=== PATIENT | male | born 1985 | race Caucasian/White ===

== ENCOUNTER 2025-04-04 23:29 | Emergency (ER) | payer OTHER, SELFPAY ==
--- OUTSIDE RECORDS SUMMARY | 2025-04-04 23:31 | XMS_ITS | Clinical Summary ---
Author Organization [employer] [facility] Address [address] [place] [id number] Care Team Providers Care Freelance Makeup Artist Name Role Phone Pcp, No Primary Care Provider Unavailabl e Allergies Active Allergy Reactions Criticality Noted Date Comments Penicillins Rash 11/25/2009 Medications loratadine (CLARITIN) 10 mg tablet Take 1 tablet by mouth once daily. 0 0 Active multivitamin (MVI) tablet Take 1 tablet by mouth once daily. 0 1 Active albuterol HFA (PRO-AIR; VENTOLIN; PROVENTIL) 90 mcg/actuation inhalerIndicati ons:Chest congestion Inhale 1-2 Puffs by mouth every 4 hours if needed for Shortness of Breath 1st choice. 1 Each 1 Active Active Problems Problem Noted Date Diagnosed Date Obesity 12/05/2010 Allergic rhinitis 12/05/2010 Immunizations Immunization Administration Dates Next Due DTP 03/11/1990,06/13/1987,05/26/1986 ,02/27/1986,1985 Hepatitis B (Peds) 07/10/1996 MMR 07/10/1996,06/13/1987 Oral Polio Vaccine 04/27/1988,06/13/1987, 986,02/27/1986,1985 Td (Age >=7 Years) 03/11/1996 Tdap 04/11/2009 Family History Medical History Relation Name Comments Diabetes Brother type 2 Diabetes Mother Other Mother obesity Cancer Other none Relation Name Status Comments Brother Mother Other Social History Tobacco Use Types Packs/Day Years Used Date Smoking Tobacco: Never Smokeless Tobacco: Never Tobacco Cessation:Counseling Given: Yes Alcohol Use Standard Drinks/Week Comments No 0 (1 standard drink = 0.6 oz pur e alcohol) Social Connections Answer Date Recorded Frequency of Communication with Friends and Fami ly Not on file 09/04/2021 Financial Resource Strain Answer Date R ecorded Difficulty of Paying Living Expenses Not on file 09/04/2021 Difficulty of Paying Living Expenses Not on file 09/04/2021 Sex and Gender Information Value Date Recorded Sex Assigned at Not on file Legal Sex 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 Gender Identity Not on file Sexual Orientation Not on file Occupation Industry Job Start Date Job End Date unemployed Not on file Not on file Not on file Obstetrics History Last Filed Vital Signs Vital Sign Reading Time Taken Comments Blood Pressure 157/97 08/14/2021 11:24 AM 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 2nd reading Pulse 86 08/14/2021 11:24 AM 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 Temperature 36.9 C (98.4 F) 10/13/2017 7:45 AM 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 Respiratory Rate 20 10/13/2017 7:45 AM 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 Oxygen Saturation 97% 08/14/2021 11: 21 AM 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 Inhaled Oxygen Concentration - - Weight 180.3 kg (397 lb 6.4 oz) 08/14/2021 11:21 AM 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 Height 179.1 cm (5' 10.5) 01/17/2014 1 2:17 PM CDT Body Mass Index 56.22 01/17/2014 12:17 PM CDT Plan of Treatment Health Maintenance Due Date Last Done Comments Hepatitis B series for 19+ ( 2 of 3 - 3-dose series) 08/07/1996 07/10/1996 Depression screening for age 12+ 1997 HIV for age 15-65 01/03/2000 BMI (ht and wt on same day) for age 18+ 2003 Hepatitis C screening for ag e 18-79 2003 Tetanus booster 04/11/2019 04/11/2009, 03/11/1996 Lipids for age 35-44 01/03/2020 01/01/2011 COVID-19 vaccine series (2023- season) 2024 Influenza Vaccine (#1) 2025 Pneumococcal series for age 6-49 Aged Out No longer eligible b ased on patient's age to complete this topic Procedures Procedure Name Priority Date/Time Associated Diagnosis Comments LIPID PANEL W REFLEX MEASURED LDL Routine 01/01/2011 10:59 AM CDT Obesity from Last 3 Months or Most Recently Relevant to Health Maintenance Results * (ABNORMAL) lipid with reflex (01/01/2011 10:59 AM CDT) CHOLESTEROL,TOTAL 156 110 - 199 mg/dL [facility] TRIGLYCERIDES 139 <150 mg/dL [facility] HDL CHOLESTEROL 35(L) >40 mg/dL [facility] CHOL/HDL RATIO 4.46 <4.51 [facility] LDL CHOLESTEROL 93 <131 mg/dL [facility] PATIENT STATUS Fasting [facility] Blood specimen (specimen) BLOOD SPECIMEN / Unknown 01/01/2011 10:59 AM CDT 01/01/2011 10:48 AM CDT us Miguel Angel Trejo MD CHEMISTRY Final Re sult Performing Organization Address City/State/[facility] Co de Phone Number [facility] [address] [place], [place] [phone] from Last 3 Months or Most Recently Relevant to Health Maintenance Insurance [employer] Care Teams Freelance Makeup Artist Relationship Specialty Start Date End Date Pcp, No . PCP - General 10/06/13
[2025-04-04 23:33] VITALS: BP 158/106; PULSE 90; RESP 20; TEMP 36.6; O2SAT 96; BMI 54.5
[2025-04-05] MEDS: AZITHROMYCIN 250 MG TABLET 500 MG PO (00:14)
[2025-04-05 00:18] VITALS: TEMP 36.6
[2025-04-05] MEDS: ACETAMINOPHEN 500 MG TABLET 1000 MG PO (00:18)
--- NOTE | 2025-04-05 00:18 | ED_ITS ---
HPI - General Adult General Chief complaint: Jaw Injury/Pain Stated complaint: jaw pain Time Seen by Provider: 04/04/25 23:55 Source: patient Mode of arrival: ambulatory Limitations: no limitations History of Present Illness HPI narrative: 40-year-old male presents to the emergency department for evaluation of pain in the upper left jaw area, mild swelling of the cheek. Bothersome for the past day and half. Tried taking 800 mg of ibuprofen about 3 hours ago, no significant improvement. Did try taking 2 tablets of ibuprofen earlier in the day, has not tried Tylenol. No fever but felt a little warm today, did not measure his temperature. No fever noted at triage. No swelling of the neck, no difficulty swallowing, no difficulty breathing. Does have a known broken tooth and has not made an attempt to get a dental appointment. Does not regularly follow with a dentist. Not immunocompromised, no long-term medical problems or prescription medications. Does report a penicillin allergy. No breathing difficulty, no GI changes. ROS is notable for the HEENT symptoms only. Negative for generalized, GI, other HEENT, respiratory or skin changes. Related Data Allergies Allergy/AdvReac Type Severity Reaction Status Date / Time Penicillins Allergy Mild Rash Verified 04/04/25 23:33 PFSH [facility] Social History Smoking Status: Never smoker Do you use any of these nicotine containing products: None Second hand tobacco smoke exposure: No How often do you have a drink containing alcohol: never How often do you have six or more drinks on one occasion: Never AUDIT-C Alcohol total score: 0 Non-prescribed substance use: denies use service: No Exam Const: Vital Signs, click to edit/add: Vital Signs - 24 hr 04/04/25 23:33 04/05/25 00:18 Temperature 97.8 F 97.8 F Pulse Rate [Pulse Oximeter] 90 Respiratory Rate 20 Blood Pressure [Ri ght Upper Arm] 158/106 H Pulse Oximetry 96 Oxygen Delivery Me thod Room Air Documenting provider has reviewed patient's vital signs: yes Common normals: no apparent distress General appearance: comfortable HENMT: Common normals: normocephalic and head/scalp atraumatic Head and scalp: normocephalic and atraumatic Other: Very mild swelling to the left upper cheek, no redness. No skin change. Opens and closes the jaw without difficulty. No swelling of the nose or abnormalities of the nares. Inter oral exam showing multiple mild dental caries but broken tooth at the left 1st molar area, upper. Mild gum swelling associated with this. No drainage, no fluctuant area or obvious abscess. No bleeding. Eye: Common normals: conjunctivae normal General eye: normal appearance of both eyes Conjunctiva: conjunctiva(e) normal Neck & C-Spine: Common normals: full ROM and no lymphadenopathy General: normal visual inspection Resp: Common normals: normal respiratory effort and no use of accessory muscles Effort & inspection: able to speak in complete sentences Cardio: Common normals: regular rate, regular rhythm, S1 normal heart sound, S2 normal heart sound and no murmurs Rate: regular rate Rhythm: regular rhythm Heart sounds: S1 normal and S2 normal Psych: Common normals: speech normal Attitude: engaged Speech: normal speech Insight: insight good Judgement: judgment good Skin: Common normals: no rashes or lesions noted General skin exam: no rashes or lesions noted Course Course ED Course: From 40-year-old male with broken tooth with inflammatory changes suspicious for early dental infection. No signs of next soft tissue descending infection that would be suggestive of airway or soft tissue emergency. No signs of encephalitis, meningitis or other significant intracranial complication. Skin is without signs of cellulitis. Differential diagnosis discussed with patient. Do recommend we start antibiotics. Penicillin allergy noted. Patient given azithromycin 500 mg p.o. x1 and then instructed to continue on Z-Regan starting tomorrow. Prescriptions for Toradol for pain, also discussed [id number] Tylenol. Limited supply of Flexeril given to help with sleep at night. Most importantly, patient was counseled that he will need to schedule with a dentist for definitive care. The care that I have offered in the emergency department is a temporary treatment that will reduce his risk of severe infection but may not eliminate it completely but will definitely not offer definitive care for the broken tooth and infection. Patient verbalized understanding and agreement. Alarm symptoms that would warrant ED evaluation were reviewed. Written instructions provided. Vital Signs Vital signs: Initial Vital Signs Temperature 97.8 F 04/04/25 23:33 Temperature Source Temporal Artery Scan 04/04/25 23:33 Pulse Rate 90 04/04/25 23:33 Pulse Rhythm Regular 04/04/25 23:33 Respiratory Rate 20 04/04/25 23:33 Blood Pressure 158/106 H 04/04/25 23:33 Blood Pressure Mean 123 H 04/04/25 23:33 Blood Pressure Position Sitting 04/04/25 23:33 Pulse Oximetry 96 04/04/25 23:33 Oxygen Delivery Method Room Air 04/04/25 23:33 Vital Signs Temperature 97.8 F 04/04/25 23:33 Pulse Rate 90 04/04/25 23:33 Respiratory Rate 20 04/04/25 23:33 Blood Pressure 158/106 H 04/04/25 23:33 Pulse Oximetry 96 04/04/25 23:33 Oxygen Delivery Method Room Air 04/04/25 23:33 Temperature 97.8 F 04/05/25 00:18 Pulse Rate 90 04/04/25 23:33 Respiratory Rate 20 04/04/25 23:33 Blood Pressure 158/106 H 04/04/25 23:33 Pulse Oximetry 96 04/04/25 23:33 Oxygen Delivery Method Room Air 04/04/25 23:33 Medications Administered Medications: Discontinued Medications Generic Name Dose Route Start Last Admin Trade Name Lonq PRN Reason Stop Dose Admin Acetaminophen 1,000 mg 04/05/25 00:14 04/05/25 00:18 Acetaminophen 500 Mg Tablet PO 04/05/25 00:15 1,000 mg ONCE ONE Administration Azithromycin 500 mg 04/05/25 00:11 04/05/25 00:14 Azithromycin 250 Mg Tablet PO 04/05/25 00:12 500 mg ONCE ONE Administration Discharge Plan Discharge Clinical Impression: Infected dental caries Patient Disposition: Home w/ Parent or Adult Condition: Stable Instructions: Dental Abscess (ED) Additional Instructions: As we discussed, there does seem to be a mild infection in the mouth associated with that broken tooth. There does not seem to be swelling into the airway or neck tissues which can be dangerous. The swelling of the cheek does seem related to the infection, but there does not seem to be any signs of severe infection at this time. As we discussed, the treatment that I can offer as a medical doctor is partial treatment and you will need to see a dentist for definitive care. I recommend that we start an antibiotic. Because of her penicillin allergy, I have prescribed azithromycin. Your given a dose in the emergency department today, this will count as your morning dose. Your next dose will be Wednesday morning. You will take 2 pills Wednesday morning and then 1 pill daily Wednesday, Wednesday, Wednesday and Wednesday. It is your responsibility to call to make an appointment with a dentist at your earliest convenience. I would recommend that you call right away in the morning as it can take quite some time to secure an appointment. It typically takes 2-3 days for the swelling to start to improve on antibiotics. For pain, have given prescription Toradol which he may take 1 pill up to every 6 hours. Do not take additional ibuprofen or Aleve while you are using the Toradol. If you run out of the Toradol, you may moved back to ibuprofen, 600 mg every 6 hours. You may also use Tylenol in addition to either medication, as it is from a different family. Proper dose of Tylenol for someone your size is 1000 mg every 6 hours. I have also given a prescription for Flexeril which is a muscle relaxant. You may use this at bedtime as a adjunct pain medicine that will also help you sleep. Do not use more than 10 mg each night. Try to avoid taking it within 5 hours of awakening, as it does cause sedation. You should return to emergency department if you cannot swallow or have difficulty breathing from additional swelling. Worsening infections are quite rare but if you have severe headache with high fever, neck stiffness or are feeling extremely ill, he should return to the emergency department in the meantime. Activity Level: No Restrictions Discharge Diet: Regular Follow Up/Referrals: Provider,Not a Local [Non-Staff, Family Practice] Stand Alone Forms: [employer] Info Instructions
--- OUTSIDE RECORDS SUMMARY | 2025-04-05 00:29 | XMS_ITS | Clinical Summary ---
Author Organization [employer] [facility] Address [address] [place] [id number] Care Team Providers Care Grinder And Honer Operator Automatic Name Role Phone Pcp, No Primary Care [...] on file Legal Sex Male 5:25 AM PACKAGE DYER Gender Identity Not on file Sexual Orientation Not on file Occupation Industry Job Start Date Job End Date unemployed Not on file Not on file Not on file Obstetrics History Last Filed Vital Signs Vital Sign Reading Time Taken Comments Blood Pressure 157/97 08/14/2021 11:24 AM PACKAGE DYER 2nd reading Pulse 86 08/14/2021 11:24 AM PACKAGE DYER Temperature 36.9 C (98.4 F) 10/13/2017 7:45 AM PACKAGE DYER Respiratory Rate 20 10/13/2017 7:45 AM PACKAGE DYER Oxygen Saturation 97% 08/14/2021 11: 21 AM PACKAGE DYER Inhaled Oxygen Concentration - - Weight 180.3 kg (397 lb 6.4 oz) 08/14/2021 11:21 AM PACKAGE DYER Height 179.1 cm (5' 10.5) 01/17/2014 1 [...] CDT) CHOLESTEROL,TOTAL 156 110 - 199 mg/dL [facility] TRIGLYCERIDES 139 <150 mg/dL [facility] HDL CHOLESTEROL 35(L) >40 mg/dL [facility] CHOL/HDL RATIO 4.46 <4.51 [facility] LDL CHOLESTEROL 93 <131 mg/dL [facility] PATIENT STATUS Fasting [facility] Blood specimen (specimen) BLOOD SPECIMEN / Unknown 01/01/2011 10:59 AM CDT 01/01/2011 10:48 AM CDT us Miguel Angel Trejo MD CHEMISTRY Final Re sult Performing Organization Address City/State/[facility] Co de Phone Number [facility] [address] [place], [place] [phone] from Last 3 Months or Most Recently Relevant to Health Maintenance Insurance [employer] Care Teams Grinder And Honer Operator Automatic Relationship Specialty Start Date End Date Pcp, No . PCP - General 10/06/13
[2025-04-05 00:31] VITALS: BP 146/88; PULSE 72; RESP 18
[2025-04-05 00:33] VITALS: RESP 18; O2SAT 98
== END 2025-04-05 00:33 | disposition home or self-care (01) ==
LOC: ED 04-05 00:27
PROVIDERS: Emergency Provider Family Medicine; PCP Family Medicine
DX: K02.9 Dental caries, unspecified (principal)
CPT/HCPCS: 99283; A9270